=== PATIENT | female | born 1990 | race Caucasian/White ===

== ENCOUNTER 2020-08-10 07:28 | Outpatient (REF) | payer OTHER, SELFPAY ==
[2020-08-10 08:52] LABS: Glucose Fasting 100 mg/dL (60-99)
[2020-08-12 18:42] LABS: Insulin Level Total 5.4 uIU/mL
== END 2020-08-10 07:29 | disposition home or self-care (01) ==
LOC: HO.LAB 07:28
PROVIDERS: Visit Provider Family Medicine
DX: R73.09 Other abnormal glucose (principal)
CPT/HCPCS: 82947; 83525